=== PATIENT | female | born 1960 | race Caucasian/White ===

== ENCOUNTER → 2017-11-20 | Outpatient (CLI) | payer BC ==
--- NOTE | 2017-11-22 08:10 | Diagnostic Imaging Report ---
Right knee MRI without contrast. History: Knee pain. Decreased range of motion. Twisting injury. Meniscus tear arrangements. Comparison: None. Technique: Multiplanar multi-sequence MRI of the knee without contrast. Findings: Medial compartment: No meniscal tear, cartilage abnormality, or MCL tear. Lateral compartment: There is an obliquely oriented tear at the anterior horn/body of the lateral meniscus. The lateral compartmental articular cartilage surfaces are thinned with regions of fraying and fissuring. The lateral collateral ligament complex is intact. Intercondylar notch: The ACL and PCL are intact. Patellofemoral compartment: There is articular cartilage fraying and fissuring in the patellofemoral compartment. Extensor mechanism: The quadriceps and patellar tendons are normal. Other findings: There is a joint effusion and synovitis. There is no acute fracture, subluxation or avascular necrosis. IMPRESSION: Obliquely oriented tear at the anterior horn/body of the lateral meniscus. The lateral compartmental articular cartilage surfaces are thinned with regions of fraying and fissuring Signed by: Dr. Marvin Giron M.D. on 11/22/2017 8:07 AM
== END ==
LOC: MRI 12:03
PROVIDERS: ATTEND Family Medicine
DX: M25.561 Pain in right knee (principal); S83.281A Other tear of lateral meniscus, current injury, right knee, initial encounter; W17.89XA Other fall from one level to another, initial encounter